=== PATIENT | female | born 1970 | race Caucasian/White ===

== ENCOUNTER 2019-06-24 21:46 | Observation (INO) | payer BC, SELFPAY ==
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
[2019-06-24 21:44] VITALS: BP 102/68; PULSE 70; RESP 23; TEMP 37.2; O2SAT 99
[2019-06-24] MEDS: HYDROmorphone 2 MG/ML VIAL ×2 (21:50→23:51)
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
[2019-06-24] MEDS: Ondansetron 4 MG/2 ML VIAL (22:12)
[2019-06-24] MEDS: LORazepam 2 MG/ML VIAL 0.5 MG IVP (22:20)
[2019-06-24 22:50] VITALS: BP 98/53; PULSE 77; RESP 19; O2SAT 99
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
--- NOTE | 2019-06-24 23:16 | DI.RAD_ITS ---
EXAM: XR ELBOW RT COMPLETE INDICATION: pain, injury. COMPARISON: No exams were available for comparison TECHNIQUE: 2D digital imaging was performed. FINDINGS: The exam is somewhat limited by overlying gauze. There is posterior soft tissue swelling and some m ild debris of the through the olecranon suspicious for a nondisplaced fracture. A joint effusion i s seen. IMPRESSION: Limited exam due to overlying material. Question of a nondisplaced fracture of the olecranon.
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
[2019-06-24] MEDS: Ketorolac 30 MG/ML VIAL IM (23:52)
[2019-06-25] VITALS (13 sets, daily range): BP systolic 78–105; BP diastolic 38–70; PULSE 62–83; RESP 10–18; TEMP 36.4–37.2; O2SAT 97–100
--- NOTE | 2019-06-25 00:11 | NUR.NOTE ---
06/24/19 8430-cervical collar cleared by Dr Gilmore. Nursing Note:
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
[2019-06-25] MEDS: ceFAZolin 2 GM/50 ML BAG 50 GM (02:37)
[2019-06-25] MEDS: HYDROmorphone 2 MG/ML VIAL (03:57)
[2019-06-25] MEDS: Normal Saline 1,000 ML 80 ML IV ×2 (04:00→09:18)
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
[2019-06-25] MEDS: Ketorolac 15 MG/ML VIAL IVP ×3 (06:28→19:40)
--- NOTE | 2019-06-25 06:35 | NUR.NOTE ---
Dr. Meadows in to talk with pt. Will be going to the OR tis AM. Will likely be discharged home after the prcedure.Nursing Note:
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
--- NOTE | 2019-06-25 06:49 | DI.RAD_ITS ---
EXAM: XR ELBOW RT LIMITED CLINICAL HISTORY: Open fracture of right elbow TECHNIQUE: C-arm fluoroscopy was provided for Dr. Meadows in the OR. COMPARISON: XR ELBOW RT COMPLETE from 06/24/2019 FINDINGS: Hard copy images show placement of a screw through the olecranon for fracture fixation. Please see procedure note for details. Fluoro Time: 34.7 seconds
[2019-06-25] MEDS: ceFAZolin 2 GM/50 ML BAG IVPB (07:31)
[2019-06-25] MEDS: Acetaminophen 500 MG TAB 1000 MG PO ×2 (11:35→19:40)
[2019-06-25] MEDS: HYDROmorphone 2 MG/ML VIAL 1 MG IVP ×2 (11:35→13:36)
[2019-06-25] MEDS: Normal Saline Flush 10 ML SYR IVP ×3 (11:36→19:41)
[2019-06-25] MEDS: ceFAZolin 1 GM/50 ML BAG IVPB ×2 (11:58→19:36)
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
--- NOTE | 2019-06-25 13:55 | PGE_ITS ---
Date of Service Date of service: 06/25/19 Time of Service: 13:55 Assessment and Plan Assessment and plan (1) Open fracture of right olecranon: Status: Acute Assessment and plan: María is s/p I&D and ORIF of an open right olecranon fracture. She is to stay in the splint until follow-up. She may use your fingers and hand as tolerated but otherwise keep it elevated. Ice may be applied to the elbow region. Acute post-oeprative pain management with oral Oxycodone, Tylenol, and Ketorolac. May d/c to home 2000 antibiotic dosing - but she should have someone car pick up driver medications at the pharmacy prior. Qualifiers: Encounter type: initial encounter Open fracture type: open type I or II Qualified Code(s): S52.021B - Displaced fracture of olecranon process without intraarticular extension of right ulna, initial encounter for open fracture type I or II Subjective Subjective Interval history since last seen: María underwent I&D and operative fixation of her right open olecranon fracture. Thiss went well without issue. She was seen in the PACU with good pain relief, only moderate residual pain. No nunbess or tingling. Objective Objective Clinical Data: Vital Signs Temperature 36.7 C 06/25/19 10:34 Temperature Source Temporal Artery Scan 06/25/19 10:34 Pulse 76 06/25/19 11:44 Respiratory Rate 16 06/25/19 11:44 Respiratory Effort Non-Labored 06/25/19 10:34 Respiratory Depth Normal 06/25/19 10:34 Respiratory Pattern Normal 06/25/19 10:34 Blood Pressure 101/57 L 06/25/19 11:44 Blood Pressure Mean 79 06/25/19 10:34 Blood Pressure Position Supine 06/25/19 10:34 Pulse Oximetry 97 06/25/19 11:44 Respiratory End-tidal CO2 48 06/25/19 10:00 Oxygen Delivery Method Room Air 06/25/19 11:44 Oxygen Flow Rate 0 06/25/19 11:44 Pain Level 6 06/25/19 13:36 Intake & Output 06/24/19 06/25/19 06/25/19 23:59 11:59 23:59 Intake Total 1074.000 / 1388.000 314 / 1388.000 Output Total 660 / 660 Balance 414.000 / 728.000 314 / 728.000 Weight 56.245 kg 58 kg Intake: IV 974.000 / 1288.000 314 / 1288.000 Oral 100 / 100 Output: Urine 610 / 610 Estimated Blood Loss 50 / 50 Other: Urine Color Yellow Urine Appearance Clear Urine Odor Normal Emesis Description None Voiding Methods Bedside Commode
[2019-06-25] MEDS: oxyCODONE 5 MG TAB PO (14:30)
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
== END 2019-06-25 20:45 | disposition home or self-care (01) ==
LOC: ER 06-25 01:10 → ICU 06-25 02:57
PROVIDERS: Admitting Provider Student in an Organized Health Care Education/Training Program; Emergency Provider Student in an Organized Health Care Education/Training Program; PCP Internal Medicine; Visit Provider Student in an Organized Health Care Education/Training Program
PROC: 0PSK04Z Reposition Right Ulna with Internal Fixation Device, Open Approach (ICD-10-PCS; CPT 24685; principal; 2019-06-25 06:40)
DX: S52.021B Displaced fracture of olecranon process without intraarticular extension of right ulna, initial encounter for open fracture type I or II (principal); M25.511 Pain in right shoulder; V89.2XXA Person injured in unspecified motor-vehicle accident, traffic, initial encounter
CPT/HCPCS: 24685; 11012; C1713; 96374; 96375; 99253; 99285; NC; 72125; 73070; 73080; 73200; 99284; G0378; J0690; J1100; J1885; J2060; J2250; J2405; J3010; L3650

== ENCOUNTER 2019-07-11 15:22 | Outpatient (CLI) | payer BC, SELFPAY ==
--- NOTE | 2019-07-11 15:21 | DI.RAD_ITS ---
EXAM: XR ELBOW RT COMPLETE INDICATION: f/u R Elbow ORIF and I D. COMPARISON: CT UPPER EXTREMITY RT WO from 06/24/2019 XR ELBOW RT COMPLETE from 06/24/2019 XR ELBOW RT LIMITED from 06/25/2019 TECHNIQUE: 2D digital imaging was performed. FINDINGS: There is no change in alignment of the proximal right ulnar fracture. There is again seen a single s crew transfixing the fracture. No new fracture or dislocation is seen. The soft tissues are unremark able.
== END 2019-07-11 15:42 ==
PROVIDERS: PCP Internal Medicine; Visit Provider Student in an Organized Health Care Education/Training Program
DX: S52.021D Displaced fracture of olecranon process without intraarticular extension of right ulna, subsequent encounter for closed fracture with routine healing (principal)
CPT/HCPCS: 73080

== ENCOUNTER 2019-08-15 08:58 | Outpatient (CLI) | payer BC, SELFPAY ==
--- NOTE | 2019-08-15 08:23 | DI.RAD_ITS ---
EXAM: XR ELBOW RT COMPLETE INDICATION: ORIF R olecranon. COMPARISON: XR ELBOW RT COMPLETE from 06/24/2019 XR ELBOW RT LIMITED from 06/25/2019 XR ELBOW RT COMPLETE from 07/11/2019 TECHNIQUE: 2D digital imaging was performed. FINDINGS: A screw is again noted in the proximal ulna. The fracture is not discretely visible consistent with increased healing. Soft tissue swelling remains present posteriorly.
== END 2019-08-15 09:18 ==
PROVIDERS: PCP Internal Medicine; Visit Provider Physician Assistant
DX: S52.021D Displaced fracture of olecranon process without intraarticular extension of right ulna, subsequent encounter for closed fracture with routine healing (principal); M79.89 Other specified soft tissue disorders
CPT/HCPCS: 73080